=== PATIENT | female | born 2000 | race Caucasian/White ===

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

== ENCOUNTER 2018-08-04 19:52 | Emergency (ER) | payer MEDICAID ==
[~2018-08-04] VITALS: Ht 167.6 cm; Wt 108.0 kg
[~2018-08-04 19:52] MED LIST changes: +ERYTHROMYCIN E3.5 G2 OPHTHALMIC
[2018-08-04 19:57] VITALS: BP 108/63
== END 2018-08-04 20:23 | disposition home or self-care (01) ==
LOC: M.ERS 19:52
DX: H00.024 Hordeolum internum left upper eyelid (principal); J45.909 Unspecified asthma, uncomplicated; Z88.6 Allergy status to analgesic agent